=== PATIENT | male | born 2000 | race Caucasian/White ===

== ENCOUNTER 2020-09-13 21:09 | Emergency (ER) | payer MEDICAID ==
[~2020-09-13] VITALS: Ht 170.2 cm; Wt 59.0 kg
[2020-09-13 22:36] LABS: BASOPHIL % 0.2 % (0-2); PLATELET COUNT 293 x10^3mcL (130-400); RED CELL DISTRIBUTION WIDTH 14.9 % (11.5-14.5)
[2020-09-13 22:50] LABS: CALCIUM 9.7 mg/dL (8.5-10.1); CARBON DIOXIDE 30.1 mmol/L (21-32); CHLORIDE SERUM 102 mmol/L (98-107); GFR1 > 60 mL/min; GLUCOSE SERUM 191 mg/dL (74-106); POTASSIUM SERUM 3.9 mmol/L (3.5-5.1); SODIUM SERUM 141 mmol/L (136-145)
[2020-09-13 23:02] LABS: ALKALINE PHOSPHATASE 71 U/L (46-116); ALT/SGPT 50 U/L (16-63); AMPHETAMINE QUAL UR POSITIVE (See below); AST/SGOT 31 U/L (15-37); BILIRUBIN TOTAL 0.4 mg/dL (0.20-1.00)
[2020-09-13 23:04] LABS: TOTAL PROTEIN, SERUM 8.3 g/dL (6.4-8.2)
[2020-09-14 00:29] VITALS: BP 140/92
== END 2020-09-14 00:29 | disposition home or self-care (01) ==
LOC: ED 21:09
PROVIDERS: Emergency Medicine
DX: G40.909 Epilepsy, unspecified, not intractable, without status epilepticus (principal); F15.10 Other stimulant abuse, uncomplicated
CPT/HCPCS: J2405; J7030